=== PATIENT | female | born 1975 | race African-American/Black ===

== ENCOUNTER 2017-08-05 11:11 | Emergency (ER) | payer SELFPAY | END 2017-08-05 12:00 | disposition home or self-care (01) | LOC: NAV ERS 11:11 | DX: B86 Scabies (principal) | CPT/HCPCS: 99282 ==

== ENCOUNTER 2017-11-16 09:13 | Emergency (ER) | payer SELFPAY | END 2017-11-16 09:45 | disposition home or self-care (01) | LOC: NAV ERS 09:13 | DX: R21 Rash and other nonspecific skin eruption (principal) | CPT/HCPCS: 87070; 87205; 99283 ==

== ENCOUNTER 2018-11-29 18:31 | Emergency (ER) | payer OTHER, SELFPAY | END 2018-11-29 18:56 | disposition home or self-care (01) | LOC: NAV ERS 18:31 | DX: J06.9 Acute upper respiratory infection, unspecified (principal) | CPT/HCPCS: 99281 ==